=== PATIENT | female | born 1945 | race Hispanic/Latino ===

== ENCOUNTER → 2023-10-29 | Outpatient (REF) | payer MEDICARE ==
[~2023-10-29] MED LIST: B COMPLEX1 EACH PO; BALSALAZIDE DI750 MG PO; CALCIUM PO; MAGNESIUM PO; PANTOPRAZOLE SO40 MG PO; VITAMIN B122500 MCG PO; VITAMIN D325 MCG PO; ZETIA10 MG PO
== END ==
LOC: US 11:10
PROVIDERS: ATTEND Otolaryngology
DX: C73 Malignant neoplasm of thyroid gland (principal)
CPT/HCPCS: 76536

== ENCOUNTER → 2024-12-22 | Outpatient (REF) | payer MEDICARE | LOC: US 13:10 | PROVIDERS: ATTEND Otolaryngology | DX: E04.1 Nontoxic single thyroid nodule (principal) | CPT/HCPCS: 76536 ==